=== PATIENT | female | born 1930 | race Caucasian/White ===

== ENCOUNTER → 2017-08-28 | Outpatient (CLI) | payer MEDICARE ==
--- NOTE | 2017-08-28 13:48 | Diagnostic Imaging Report ---
PROCEDURE: Frontal and lateral views of the chest. COMPARISON: Chest 2 views 07/04/2014. INDICATIONS: COUGH FINDINGS: Lines/tubes: None. Lungs: Air space opacification is present in the left lung base. No parenchymal mass. Pleura: Small bilateral pleural effusions. No pneumothorax. Heart and mediastinum: The heart and the mediastinum are normal. Bones: No acute bony abnormality. Soft tissues: Large hiatal hernia. IMPRESSION: Airspace opacity in the left lung base likely represents a developing pneumonia. Small bilateral pleural effusions. Dictated by: Koby Soriano M.D. on 08/28/2017 at 13:57 Electronically approved by: Koby Soriano M.D. on 08/28/2017 at 13:57
== END ==
LOC: RAD 12:34
PROVIDERS: ATTEND Internal Medicine
DX: J15.9 Unspecified bacterial pneumonia (principal); J10.1 Influenza due to other identified influenza virus with other respiratory manifestations
CPT/HCPCS: 71020